=== PATIENT | male | born 1960 | race Caucasian/White ===

== ENCOUNTER 2016-12-25 06:09 | Day surgery (SDC) | payer BC ==
[2016-12-25] VITALS (7 sets, daily range): BP systolic 115–128; BP diastolic 65–78
[~2016-12-25] VITALS: Ht 175.3 cm; Wt 77.1 kg
[~2016-12-25 06:09] MED LIST: FISH OIL 1,2001 EAC2 PO; MULTIVITAMINS1 EAC2 ORAL; SIMVASTATIN10 MG ORAL
[2016-12-25] MEDS ORDERED: LR 1000ml 1,000 ML IVLG SCH ×2 (07:00→07:19)
[2016-12-25] MEDS ORDERED: Alfentanil 2ml Inj ONE (07:00)
[2016-12-25] MEDS ORDERED: Propofol 200mg/20ml IV ONE (07:00)
[2016-12-25] MEDS ORDERED: LR 1000ml ONE (07:00)
[2016-12-25] MEDS ORDERED: Lidocaine 1% MPF 10mg/ml 5ml ONE (07:00)
[2016-12-25] MEDS ORDERED: Midazolam 2mg/2ml Inj ONE (07:00)
--- NOTE | 2016-12-25 07:00 | Anethesia Preoperative Eval ---
Anesthesia Pre-op PMH/ROS General Date of Evaluation: Dec 25, 2016 Time of Evaluation: 06:42 Anesthesiologist: Mars ASA Score: ASA 2 Mallampati Score Class I : Soft palate, uvula, fauces, pillars visible Class II: Soft palate, uvula, fauces visible Class III: Soft palate, base of uvula visible Class IV: Only hard plate visible Mallampati Classification: Class II Surgeon: Allyn Diagnosis: Abd Pain Surgical Procedure: Colonoscopy Anesthesia History: none Family History: no anesthesia problems Allergies: Coded Allergies: No Known Allergies (Unverified , 12/24/16) Medications: see eMAR Past Medical History Cardiovascular: Reports: other - HL Gastrointestinal/Genitourinary: Reports: other - Testicular CA Hematology/Immune: Reports: other - Testicular CA PSxH Narrative: Testicular SX, L shoulder RCR Anesthesia Pre-op Phys. Exam Physician Exam Last Vital Signs Date Time Temp Pulse Resp B/P (MAP) Pulse Ox O2 Delivery O2 Flow Rate FiO2 12/25/16 06:31 97.1 65 18 120/69 99 Room Air Constitutional: NAD Neurologic: CN 2-12 intact Cardiovascular: RRR Respiratory: CTA Gastrointestinal: S/NT/ND Airway Exam Mallampati Score: Class II MO: full ROM: full Teeth: intact Anesthesia Pre-op A/P Risk Assessment & Plan Assessment: ASA 2 Plan: GA Status Change Before Surgery: Karthik Aiken MD Dec 25, 2016 07:00
--- NOTE | 2016-12-25 07:01 | Immediate Post-Op Evaluation ---
Immediate Post-Op Evalulation Immediate Post-Op Evalulation Procedure: Colonoscopy Date of Evaluation: Dec 25, 2016 Time of Evaluation: 07:54 IV Fluids: 600 LR Blood Products: 0 Estimated Blood Loss: 2 Urinary Output: 0 Blood Pressure Systolic: 119 Blood Pressure Diastolic: 65 Pulse Rate: 64 Respiratory Rate: 16 O2 Sat by Pulse Oximetry: 100 Temperature (Fahrenheit): 97.4 Pain Score (1-10): 1 Nausea: No Vomiting: No Complications 0 Patient Status: awake, reacts, patent, extubated, none Hydration Status: adequate Karthik Kaye MD Dec 25, 2016 07:01
--- NOTE | 2016-12-25 07:02 | 48 Hour Post Anesthesia Eval ---
Post Anesthesia Evaluation Procedure: Colonoscopy Date of Evaluation: Dec 25, 2016 Time of Evaluation: 11:03 Blood Pressure Systolic: 121 0: 76 Pulse Rate: 65 Respiratory Rate: 18 Temperature (Fahrenheit): 98.3 O2 Sat by Pulse Oximetry: 99 Airway: patent Nausea: No Vomiting: No Pain Intensity: 1 Hydration Status: adequate Cardiopulmonary Status: Stable Mental Status/LOC: patient returned to baseline Follow-up Care/Observations: 0 Post-Anesthesia Complications: 0 Follow-up care needed: ready to discharge Karthik Kaye MD Dec 25, 2016 07:02
--- NOTE | 2016-12-25 07:10 | Pre-Procedure Note/Attestation ---
Pre-Procedure Note/Attestation Complete Prior to Procedure Planned Procedure: not applicable Procedure Narrative: screening Indications for Procedure Pre-Operative Diagnosis: colonoscopy Attestation I attest that I discussed the nature of the procedure; its benefits; risks and complications; and alternatives (and the risks and benefits of such alternatives ), prior to the procedure, with the patient (or the patient's legal asset protection representative). I attest that, if there was a reasonable possibility of needing a blood transfusion, the patient (or the patient's legal asset protection representative) was given the [facility] standardized written summary, pursuant to the Shakir Kulm Blood Safety Act ([place] Health and Safety Code # 1645, as amended). I attest that I re-evaluated the patient just prior to the surgery and that there has been no change in the patient's H&P, except as documented below: JUANA ROSAS Dec 25, 2016 07:10
[2016-12-25] MEDS ORDERED: Hydromorphone 0.5mg/0.5ml inj IVP PRN (07:30)
[2016-12-25] MEDS ORDERED: Norco 5mg/325mg tab ORAL PRN (07:30)
[2016-12-25] MEDS ORDERED: Midazolam 2mg/2ml Inj IVP PRN (07:30)
[2016-12-25] MEDS ORDERED: LORazepam Inj 2mg/ml 1ml IV PRN (07:30)
[2016-12-25] MEDS ORDERED: Norco 7.5mg/325mg tab ORAL PRN (07:30)
[2016-12-25] MEDS ORDERED: Ketorolac 30mg Inj IV PRN (07:30)
[2016-12-25] MEDS ORDERED: oxyCODONE HCL/Acetaminophen 5/325mg ORAL PRN (07:30)
[2016-12-25] MEDS ORDERED: Metoclopramide 10mg/2ml Inj IVP PRN (07:30)
[2016-12-25] MEDS ORDERED: DiphenhydrAMINE 50mg/ml Inj IVP PRN (07:30)
[2016-12-25] MEDS ORDERED: Atropine Inj 1mg/10ml Syr IV PRN (07:30)
[2016-12-25] MEDS ORDERED: fentaNYL 100 mcg/2 mL IV PRN (07:30)
[2016-12-25] MEDS ORDERED: Ketorolac 60mg Inj IV PRN (07:30)
--- NOTE | 2016-12-25 19:32 | Endoscopy Procedure Note ---
Endoscopy Procedure Note Indication for Procedure: screening Procedures Performed: colonoscopy Operative Findings/Diagnosis: dim sigmoid polyp Specimen: yes Pt Tolerated Procedure Well: Yes Estimated Blood Loss: none Anesthesiologist: Mars Anesthesia: MAC Medication Given: see anesthesia record Implant(s) used?: No 50 yrs or older w/o bx or poly: Yes 10yrs. F/U not recommended: No If not recommended, why?: Above average risk 10 yrs. F/U needed: No 18 years or older w/prev. colo: No <3yrs. since last colonoscopy: No Med reason:<3 yrs.: System Reason:<3 yrs.: Last colonoscopy >= to 3yrs: Yes JUANA ROSAS Dec 25, 2016 19:32
--- NOTE | 2016-12-25 19:33 | Brief Operative Note ---
Immediate Post Operative Note Operative Note Chief Complaint: screen Pre-op Diagnosis: colonoscopy Procedure: colon, Bx Post-op Diagnosis: sig polyp, dim Surgeon: liz Anesthesiologist: Mars Anesthesia: MAC Specimen: yes Complications: none Condition: stable Fluids: see anesth Estimated Blood Loss: none Drains: none Implant(s) used?: No JUANA ROSAS Dec 25, 2016 19:33
--- NOTE | 2016-12-26 02:01 | Procedure Note ---
DATE OF PROCEDURE: 12/25/2016 PROCEDURE: Screening colonoscopy with biopsy. SURGEON: Viri Gruber M.D. ANESTHESIA: Please see the separate anesthesiologist notes for details. PRE-ENDOSCOPIC DIAGNOSIS: Screening. POST-ENDOSCOPIC DIAGNOSIS: Diminutive polyp in the sigmoid colon, status post biopsy removal. DESCRIPTION OF PROCEDURE: The procedure, its risks, indications, alternatives, and possible complications including, but not limited to, bleeding, infection, perforation, , and anesthesia complications were explained to the patient and informed consent was obtained. The patient was then sedated in the left lateral decubitus position. Rectal exam was done, which was unremarkable. The colonoscope was then introduced into the rectum and advanced to the terminal ileum without difficulty. The colonoscope was then gradually withdrawn and the mucosa was examined carefully. Examination of the colonic and the terminal ileum mucosa was normal except for a diminutive polyp in the sigmoid colon at 20 cm, which was removed with the biopsy forceps. The colonoscope was removed. The patient was sent to recovery in good condition. COMPLICATIONS: None. RECOMMENDATIONS: 1. Follow up biopsy results. 2. Outpatient followup. 3. Repeat colonoscopy in 5 years. Thank you for asking me to participate in the care of this patient. Viri Gruber M.D. DR: IQRA JOB#: [id number] CC: Fuad Rubin M.D.
== END 2016-12-25 08:40 | disposition home or self-care (01) ==
LOC: GAS 06:09
DX: Z12.11 Encounter for screening for malignant neoplasm of colon (principal); K63.5 Polyp of colon; E78.00 Pure hypercholesterolemia, unspecified; E78.5 Hyperlipidemia, unspecified; Z85.47 Personal history of malignant neoplasm of testis; Z80.0 Family history of malignant neoplasm of digestive organs; Z82.49 Family history of ischemic heart disease and other diseases of the circulatory system
CPT/HCPCS: 45380; J2250; J2704; J3490; J7120; 94003; 94150